=== PATIENT | female | born 1975 | race Hispanic/Latino ===

== ENCOUNTER 2016-10-30 09:07 | Day surgery (SDC) | payer MEDICAID ==
[2016-10-21 09:55] VITALS: BMI 31.3
[2016-10-30] MEDS ORDERED: Midazolam 2 MG/2 ML VIAL ONE (11:45)
[2016-10-30] MEDS ORDERED: Propofol 10 mg/ml Inj (20 ML) ONE (11:45)
[2016-10-30] MEDS ORDERED: Bupivacaine/Epi 0.25%-1:200,000 10 ml PF inj IJ ONE (12:36)
[2016-10-30] MEDS ORDERED: Lidocaine 1% Inj (20ml) ONE (12:37)
[2016-10-30] MEDS ORDERED: Lactated Ringer's 1,000 ML IV ONE ×2 (12:45→14:00)
[2016-10-30] MEDS ORDERED: Ciprofloxacin 400mg/200ml D5W 400 MG/200 ML BAG IVPB ONE (12:53)
[2016-10-30] MEDS ORDERED: HYDROmorphone 0.5 mg/0.5 ml ISec IVP PRN (13:48)
--- NOTE | 2016-10-30 14:04 | PCM.SURG1 ---
Surgeon's Initial Post Op Note - Surgeon's Notes Surgeon: Dr. More Office Cleaner: Isabel Soto Type of Anesthesia: General Endo, Local Pre-Operative Diagnosis: cholelithiasis, symptomatic Operative Findings: see operative report Post-Operative Diagnosis: same Operation Performed: robotic assisted laparoscopic cholecystectomy Specimen/Specimens Removed: gallbladder Estimated Blood Loss: EBL {In ML}: 10 Blood Products Given: N/A Drains Used: No Drains Post-Op Condition: Good Date of Surgery/Procedure: 10/30/16 Time of Surgery/Procedure: 14:04
[2016-10-30] MEDS ORDERED: Oxycodone/Acetaminophen 5/325 mg Tab PO PRN (14:05)
[2016-10-30 15:58] VITALS: BP 123/82; PULSE 85; RESP 18; TEMP 98.6; O2SAT 100
--- NOTE | 2016-10-31 07:55 | OP ---
PROCEDURE DATE: 10/30/2016 PREOPERATIVE DIAGNOSES: Cholelithiasis and cholecystitis. POSTOPERATIVE DIAGNOSES: Cholelithiasis and cholecystitis. PROCEDURE DONE: Robotic cholecystectomy. SURGEON: Bob More MD. RAW MILL OPERATOR: MARAH Torres. Isabel was present from the beginning to the end of the procedure. H elped in prepping and draping, placement of the ports, docking and undocking of the robot, and closur e of the wounds. SECOND RAW MILL OPERATOR: Milagros Kong, PGY-1 resident. ANESTHESIA: General endotracheal tube anesthesia. ESTIMATED BLOOD LOSS: Around 10 mL. DRAINS: None. PATHOLOGY: Gallbladder with gallstone was sent for pathology. COMPLICATIONS: None. INTRAOPERATIVE FINDINGS: The patient had changes of chronic cholecystitis and cholelithiasis. INTRAOPERATIVE STEPS: This is a 41-year-old female who was diagnosed with cholelithiasis and chronic cholecystitis and patient was consented for robotic cholecystectomy, possible open. Brought to the OR, placed supine on the operating table. After induction of the anesthesia, abdomen was prepped and draped in the usual sterile fashion. The supraumbilical transverse 1.5 cm incision was made. After incising skin and subcutaneous tissue and fascia, the robotic camera port was placed. Another two 8 mm ports were placed in the right upper quadrant and left upper quadrant. A 5 mm port was placed in the midclavicular line in the right side and the robot was brought in. Camera arm and arm 1 and arm 2 were docked, and grasper and hook was introduced. The gallbladder was retracted cranially. Calot 's triangle dissection was done. Cystic duct and cystic artery were identified and clipped at 3 plac es and cut in between 2 clips near the gallbladder. The intraoperative Firefly was used to identify the anatomy. The cystic duct/common bile duct junction was identified and the critical view of safet y was identified. After that, the gallbladder was dissected free from the gallbladder fossa, taken i n EndoCatch bag, taken out through the umbilical port site and sent off the table for the pathology. After proper hemostasis, all the instruments were taken out, robot was undocked, all the ports were taken out under vision, pneumo was deflated. Umbilical port site was closed in 2 layers: The fascia with 0 Prolene interrupted suture, skin with a 4-0 Monocryl. Dry, sterile dressing was applied. Th e patient tolerated the procedure well. Count of instruments and gauze was correct. There was no ap parent complication. The patient was extubated in the OR, sent to the postanesthesia care unit in st able condition. Bob More MD cc: [id number] TT: 10/31/2016 07:54:37 mn
== END 2016-10-30 15:55 | disposition home or self-care (01) ==
LOC: C.SDS 09:07
PROVIDERS: ATTEND Surgery Surgical Critical Care
DX: K80.10 Calculus of gallbladder with chronic cholecystitis without obstruction (principal)
CPT/HCPCS: 47562; 88304; J0744; J1100; J1885; J2001; J2250; J2405; J2704; J2765; J3010; J7120